=== PATIENT | female | born 1995 | race Caucasian/White ===

== ENCOUNTER 2021-07-31 11:35 | Inpatient (IN) | payer BC, SELFPAY ==
[~2021-07-31 11:35] MED LIST: Bupivacaine 0.25% HCL 30 ML VIAL ONE; Bupivacaine PF 0.5% 30 ML VIAL ONE
[2021-07-31] MEDS ORDERED: Docusate 100 MG CAP PO PRN (11:37)
[2021-07-31] MEDS ORDERED: Acetaminophen 500 MG TAB PO PRN (11:37)
[2021-07-31] MEDS ORDERED: hydrALAZINE 20 MG/ML VIAL SLOW IVP PRN ×2 (11:37→22:16)
[2021-07-31] MEDS ORDERED: Butorphanol Tartrate 1 MG/ML VIAL SLOW IVP PRN (11:37)
[2021-07-31] MEDS ORDERED: Promethazine HCl 25 MG/ML VIAL IM PRN ×2 (11:37→17:49)
[2021-07-31] MEDS ORDERED: Ondansetron PF 4 MG/2 ML Vial IVP PRN ×3 (11:37→22:16)
[2021-07-31] MEDS ORDERED: Lidocaine 1% (PF) 30 ML VIAL SC PRN (11:37)
[2021-07-31] MEDS ORDERED: HYDROcodone/Acetaminophen 5/325 mg Tablet PO PRN ×4 (11:37→22:16)
[2021-07-31] MEDS ORDERED: Ibuprofen 800 MG TAB PO PRN (11:37)
[2021-07-31] MEDS ORDERED: Misoprostol 200 MCG TAB PR PRN (11:37)
[2021-07-31] MEDS ORDERED: Diphenoxylate HCl/Atropine Tablet PO PRN ×2 (11:37)
[2021-07-31] MEDS ORDERED: NS w/ Oxytocin 30 units 500 ML IV SCH ×3 (11:45→22:30)
[2021-07-31] MEDS: Lactated Ringer's 1,000 ML IV SCH (12:45)
[2021-07-31 13:04] LABS: Hemoglobin 11.7 g/dL (12.0-15.5); Mean Corpuscular HGB CONC 33.3 g/dL (32.0-36.0); Mean Corpuscular Hemoglobin 29.2 pg (27.0-33.0); Mean Corpuscular Volume 87.5 fl (81.6-98.3); Mean Platelet Volume 9.1 fl (7.4-10.4); Platelet Count 277 10x3/uL (150-450); RBC Distribution Width 13.9 % (11.5-14.5); Red Blood Cell (RBC) Count 4.01 10x6/uL (3.90-5.03); White Blood Cell (WBC) Count 10.5 10x3/uL (3.5-10.5)
[2021-07-31 13:32] LABS: HIV (1/2) Antibody/Antigen Non-Reactive (NonReactive); HIV 1/2 INDEX 0.18 S/CO (<1.00); Hep B Surf Ag Non-Reactive S/CO (NonReactive); Syphilis Antibody Nonreactive (Nonreactive); Syphilis Antibody Index 0.09 S/CO (<1.00 Non-Reactive)
[2021-07-31 13:59] VITALS: BMI 37.9
[2021-07-31 15:37] LABS: SARS-CoV-2 NAA Rapid Test Not Detected (NotDetected)
[2021-07-31] MEDS ORDERED: Lactated Ringer's 500 ML IV PRN (17:49)
[2021-07-31] MEDS ORDERED: Naloxone HCl 0.4 mg/ml Vial IVP PRN ×2 (17:49)
[2021-07-31] MEDS ORDERED: ePHEDrine Sulfate 50 MG/10 ML VIAL SLOW IVP PRN (17:49)
[2021-07-31] MEDS ORDERED: Hydrocerin (Eucerin) Cream 120 gm Jar TOP PRN (17:49)
[2021-07-31] MEDS ORDERED: Acetaminophen 325 MG TAB PO PRN (17:49)
[2021-07-31] MEDS ORDERED: diphenhydrAMINE 50 MG/ML VIAL IVP PRN (17:49)
[2021-07-31] MEDS ORDERED: Fentanyl 2 mcg/Bup 0.1% Cadd 100 ML ONE (17:53)
[2021-07-31] MEDS ORDERED: Communication Order-Pharmacy FS SCH (18:00)
[2021-07-31] MEDS ORDERED: Fentanyl 2 mcg/Bupivacaine 0.1% Cassette 100 ML EPIDURAL SCH (18:00)
[2021-07-31] MEDS ORDERED: Carboprost 250 MCG/ML AMP ONE (21:43)
[2021-07-31] MEDS ORDERED: Methylergonovine 0.2 MG/ML VIAL ONE (21:43)
[2021-07-31] MEDS ORDERED: Milk Of Magnesia 30 ML UDCUP PO PRN (22:16)
[2021-07-31] MEDS ORDERED: Preparation H Ointment 28 GM TUBE PR PRN (22:16)
[2021-07-31] MEDS ORDERED: diphenhydrAMINE 25 MG CAP PO PRN (22:16)
[2021-07-31] MEDS ORDERED: Bisacodyl 10 MG SUPP PR PRN (22:16)
[2021-07-31] MEDS ORDERED: Misoprostol 200 MCG TAB VAG PRN (22:16)
[2021-07-31] MEDS ORDERED: Benzocaine-Menthol 82.5 ML CAN TOP PRN (22:16)
[2021-07-31] MEDS ORDERED: Boostrix 0.5 ML (Tdap) VIAL IM ONE (22:16)
[2021-07-31] MEDS ORDERED: Lanolin Ointment 7 GM TUBE TOP PRN (22:16)
[2021-07-31] MEDS ORDERED: Zolpidem Tartrate 5 MG TAB PO PRN (22:16)
[2021-08-01] MEDS: Lactated Ringer's 1,000 ML IV SCH (02:22)
[2021-08-01] MEDS: Ibuprofen 800 MG TAB PO SCH ×3 (06:01→22:02)
[2021-08-01 06:54] LABS: Hemoglobin 12.1 g/dL (12.0-15.5); Mean Corpuscular HGB CONC 33.3 g/dL (32.0-36.0); Mean Corpuscular Hemoglobin 29.7 pg (27.0-33.0); Mean Corpuscular Volume 89.2 fl (81.6-98.3); Mean Platelet Volume 9.3 fl (7.4-10.4); Platelet Count 278 10x3/uL (150-450); RBC Distribution Width 14.1 % (11.5-14.5); Red Blood Cell (RBC) Count 4.07 10x6/uL (3.90-5.03)
[2021-08-01] MEDS: Ferrous Sulfate 325 MG TAB PO SCH ×2 (08:52→15:51)
[2021-08-01] MEDS: Prenatal Vitamin 1 TAB PO SCH (09:31)
[2021-08-01] MEDS: Docusate 100 MG CAP PO SCH ×2 (09:31→22:02)
[2021-08-02] MEDS: Ibuprofen 800 MG TAB PO SCH (06:04)
[2021-08-02] MEDS: Docusate 100 MG CAP PO SCH (08:59)
[2021-08-02] MEDS: Prenatal Vitamin 1 TAB PO SCH (08:59)
[2021-08-02] MEDS: Ferrous Sulfate 325 MG TAB PO SCH (09:00)
[2021-08-02 11:55] VITALS: BP 117/69; TEMP 98
== END 2021-08-02 11:30 | disposition home or self-care (01) | DRG 807 ==
LOC: CSHLD 11:35 → CSHPP 08-01 01:01
PROVIDERS: ADMIT Obstetrics & Gynecology; ATTEND Obstetrics & Gynecology
PROC: 10E0XZZ Delivery of Products of Conception, External Approach (ICD-10-PCS; principal; 2021-07-31)
DX: O80 Encounter for full-term uncomplicated delivery (principal); Z37.0 Single live birth; Z3A.38 38 weeks gestation of pregnancy; Z20.822 Contact with and (suspected) exposure to COVID-19
CPT/HCPCS: 36415; 51702; 85027; 86780; 86850; 86900; 86901; 87340; 87389; J2590; J7120; S0020; U0002

== ENCOUNTER 2021-08-07 14:54 | Inpatient (IN) | payer BC ==
[2021-08-07] MEDS ORDERED: hydrALAZINE 20 MG/ML VIAL ONE (15:48)
[2021-08-07] MEDS ORDERED: Magnesium 2 GM/50 ML BAG (IN WATER) ONE (15:48)
[2021-08-07] MEDS ORDERED: Calcium Gluconate 4.6 MEQ in Sodium Chloride 0.9% 100 ML IVPB PRN (15:56)
[2021-08-07] MEDS ORDERED: Ondansetron PF 4 MG/2 ML Vial IVP PRN (15:56)
[2021-08-07] MEDS ORDERED: Ondansetron ODT 4 MG TAB PO PRN (15:56)
[2021-08-07 15:57] LABS: #Eosinphils 0.1 10x3/uL (0.0-0.5); #Monocytes 0.4 10x3/uL (0.0-1.1); #Neutrophils 6.9 10x3/uL (1.5-8.4); %Basophils 0.4 % (0.0-2.0); %Eosinophils 1.2 % (0.0-6.0); %Lymphocytes 22.1 % (18.0-47.0); %Monocytes 4.5 % (0.0-10.0); %Neutrophils 70.3 % (40.0-75.0); Hemoglobin 12.9 g/dL (12.0-15.5); Mean Corpuscular HGB CONC 33.3 g/dL (32.0-36.0); Mean Platelet Volume 8.8 fl (7.4-10.4); Platelet Count 308 10x3/uL (150-450); RBC Distribution Width 13.4 % (11.5-14.5); Red Blood Cell (RBC) Count 4.45 10x6/uL (3.90-5.03); White Blood Cell (WBC) Count 9.8 10x3/uL (3.5-10.5)
[2021-08-07] MEDS ORDERED: Butorphanol Tartrate 1 MG/ML VIAL SLOW IVP PRN (15:59)
[2021-08-07] MEDS ORDERED: Magnesium Sulfate 20 gm/500 ml 20 GM/500 ML BAG IVPB SCH (16:00)
[2021-08-07 16:01] LABS: Bilirubin Neg (Negative); Blood, Urine 25 (Negative); Clarity Clear (Clear); Glucose, Urine (Dipstick) Normal (Negative); Ketone, Urine 15 mg/dL (Negative); Leukocyte Negative (Negative); Nitrite Negative (Negative); Protein, Urine (Dipstick) 30 mg/dl (Neg-Trace); Urobilinogen Normal mg/dL (Less than 2)
[2021-08-07 16:07] LABS: Bacteria/HPF None Seen HPF (None Seen); Squamous Epithelial 0-3 HPF (0-3); WBC/HPF 0-3 HPF (0-3)
[2021-08-07 16:10] LABS: ALT (SGPT) 86 U/L (8-55); AST (SGOT) 37 U/L (5-34); Albumin 3.8 g/dL (3.5-5.0); Alkaline Phosphatase 123 U/L (40-110); Anion Gap 13 mmol/L (10-20); BUN (Urea Nitrogen) 12 mg/dL (7.0-18.7); Bilirubin, Total 0.4 mg/dL (0.2-1.2); Calc. Creatinine Clearance 0 mL/min (70-130); Calcium 8.8 mg/dL (7.8-10.44); Carbon Dioxide 23 mmol/L (22-29); Chloride 109 mmol/L (98-107); Globulin 3.7 g/dL (2.4-3.5); Glucose 97 mg/dL (70-105); Potassium 3.8 mmol/L (3.5-5.1); Protein, Total 7.5 g/dL (6.0-8.3); Sodium 141 mmol/L (136-145)
[2021-08-07 16:44] LABS: Magnesium 3.5 mg/dL (1.6-2.6)
[2021-08-07] MEDS: Acetaminophen 500 MG TAB PO PRN (17:16)
[2021-08-07 17:22] VITALS: BMI 35.5
[2021-08-07 18:01] LABS: Creatinine, Urine 25.97 mg/dL (47-110); Protein, Urine Random Quant Less than 10 mg/dL (1-14)
[2021-08-07] MEDS: Labetalol 100 MG TAB PO SCH (21:10)
[2021-08-08] MEDS: Acetaminophen 500 MG TAB PO PRN (07:57)
[2021-08-08] MEDS ORDERED: Hydrochlorothiazide 25 MG TAB PO SCH (09:00)
[2021-08-08] MEDS: Labetalol 100 MG TAB PO SCH (09:45)
[2021-08-08 09:49] VITALS: BP 115/63
[2021-08-08] MEDS ORDERED: Labetalol 100 MG TAB PO SCH (21:00)
== END 2021-08-08 14:08 | disposition home or self-care (01) | DRG 776 ==
LOC: CSHERS 14:54 → CSHLD 16:50
PROVIDERS: ADMIT Obstetrics & Gynecology; ATTEND Obstetrics & Gynecology
DX: O14.15 Severe pre-eclampsia, complicating the puerperium (principal); O16.5 Unspecified maternal hypertension, complicating the puerperium
CPT/HCPCS: 80053; 81003; 81015; 82570; 83735; 84156; 85025; 86850; 86900; 86901; 93005; J0360; J3475